=== PATIENT | female | born 1980 | race Caucasian/White ===

== ENCOUNTER 2017-07-11 12:52 | Inpatient (IN) | payer BC ==
[~2017-07-11] VITALS: Ht 144.8 cm; Wt 57.0 kg
[2017-07-11 15:09] LABS: BASOPHIL % 0.4 % (0-2); PLATELET COUNT 220 x10^3mcL (130-400); RED CELL DISTRIBUTION WIDTH 13.5 % (11.5-14.5)
[2017-07-11 15:14] LABS: CALCIUM 8.9 mg/dL (8.5-10.1); CARBON DIOXIDE 30.5 mmol/L (21-32); CHLORIDE SERUM 104 mmol/L (98-107); CREATININE SERUM 0.8 mg/dL (0.6-1.0); GFR1 > 60 mL/min; GLUCOSE SERUM 83 mg/dL (74-106); SODIUM SERUM 139 mmol/L (136-145)
[2017-07-11 15:21] LABS: ALBUMIN 3.7 g/dL (3.4-5.0); ALKALINE PHOSPHATASE 54 U/L (46-116); ALT/SGPT 19 U/L (14-59); AST/SGOT 15 U/L (15-37); BILIRUBIN TOTAL 0.5 mg/dL (0.20-1.00); TOTAL PROTEIN, SERUM 7.8 g/dL (6.4-8.2)
[2017-07-11 16:21] VITALS: BP 102/57
[2017-07-11 16:30] VITALS: BP 102/57
[2017-07-11 16:50] LABS: MAGNESIUM 2.3 mg/dL (1.8-2.4); PHOSPHOROUS 3.8 mg/dL (2.5-4.9)
[2017-07-11 16:53] LABS: CHOLESTEROL/HDL RATIO 3.1
[2017-07-11 16:55] LABS: T3 TOTAL 1.05 ng/mL
[2017-07-11 16:57] LABS: FREE T4 1.01 ng/dL (0.76-1.46); FREE THYROXINE INDEX 3.2 ug/dL (1.4-4.5); T4(THYROXINE) 8.7 ug/dL (4.7-13.3)
[2017-07-11 18:23] LABS: microscopic required? YES; urine erythrocyte 3+ (NEGATIVE)
[2017-07-11 18:39] LABS: AMPHETAMINE QUAL UR NONE DETECTED (NEG <=1000)
[2017-07-11 21:46] VITALS: BP 94/55
[2017-07-12 06:16] VITALS: BP 95/64
[2017-07-12 08:54] VITALS: BP 103/66
[2017-07-12 11:40] VITALS: BP 103/63
[2017-07-12 16:20] VITALS: BP 104/67
[2017-07-12 17:11] LABS: CALCIUM 8.6 mg/dL (8.5-10.1); CARBON DIOXIDE 29.6 mmol/L (21-32); CHLORIDE SERUM 104 mmol/L (98-107); CREATININE SERUM 0.7 mg/dL (0.6-1.0); GFR1 > 60 mL/min; GLUCOSE SERUM 88 mg/dL (74-106); SODIUM SERUM 138 mmol/L (136-145)
[2017-07-12 17:13] LABS: BASOPHIL % 0.6 % (0-2); PLATELET COUNT 212 x10^3mcL (130-400); RED CELL DISTRIBUTION WIDTH 13.5 % (11.5-14.5)
[2017-07-12] MEDS ORDERED: FIORICET1 CAP PO (18:50)
[2017-07-12] MEDS ORDERED: BACTRIM1 TAB PO (18:54)
[2017-07-12] MEDS ORDERED: APAP/HYDROCODON1 T13 PO (19:18)
[2017-07-12 19:28] VITALS: BP 104/67
== END 2017-07-12 19:57 | disposition home or self-care (01) | DRG 74 ==
LOC: ED 12:52 → DU 15:36
PROVIDERS: Emergency Medicine; ADMIT Family Medicine
DX: G90.9 Disorder of the autonomic nervous system, unspecified (principal); N39.0 Urinary tract infection, site not specified; G43.409 Hemiplegic migraine, not intractable, without status migrainosus; E78.5 Hyperlipidemia, unspecified; Z68.27 Body mass index [BMI] 27.0-27.9, adult; Z98.51 Tubal ligation status; R73.03 Prediabetes
CPT/HCPCS: 82962; 83880; 84439; A9579; J0696; J1200; J2060; J2270; J2405; J2765; J7030; Q0092

== ENCOUNTER 2018-08-19 02:32 | Emergency (ER) | payer BC ==
[~2018-08-19 02:32] MED LIST: APAP/HYDROCODON1 T13 PO; BACTRIM1 TAB PO; FIORICET1 CAP PO
[2018-08-19 02:36] VITALS: Ht 147.3 cm
[2018-08-19 04:30] VITALS: BP 101/67
== END 2018-08-19 05:00 | disposition home or self-care (01) ==
LOC: ED 02:32
DX: R10.13 Epigastric pain (principal); K21.9 Gastro-esophageal reflux disease without esophagitis
CPT/HCPCS: Q0162